=== PATIENT | female | born 1990 | race Caucasian/White ===

== ENCOUNTER → 2020-06-14 | Outpatient (CLI) | payer OTHER | LOC: LAB SHORT 13:21 → LAB EV 13:21 | DX: B34.9 Viral infection, unspecified (principal); Z20.828 Contact with and (suspected) exposure to other viral communicable diseases | CPT/HCPCS: U0003 ==

== ENCOUNTER 2023-02-13 18:07 | Emergency (ER) | payer OTHER ==
[~2023-02-13] VITALS: Ht 160 cm; Wt 88.9 kg
[2023-02-13 18:31] VITALS: BP 137/105
[2023-02-13] MEDS ORDERED: TRAZ50 PO (19:26)
[2023-02-13] MEDS ORDERED: Cyclobenzaprine5 MG (19:26)
[2023-02-13] MEDS ORDERED: Ventolin/Prove6.7 GM INH (19:26)
[2023-02-13] MEDS ORDERED: NEURONTIN300 MG PO (19:26)
== END 2023-02-13 20:41 | disposition home or self-care (01) ==
LOC: ER 18:07
DX: G43.909 Migraine, unspecified, not intractable, without status migrainosus (principal); Z91.041 Radiographic dye allergy status; Z88.8 Allergy status to other drugs, medicaments and biological substances; Z79.899 Other long term (current) drug therapy; E03.9 Hypothyroidism, unspecified
CPT/HCPCS: 96361; 96374; 96375; 99283-25; J0780; J1200; J1885; J7030

== ENCOUNTER 2023-10-02 15:09 | Emergency (ER) | payer OTHER ==
[~2023-10-02] VITALS: Ht 160 cm; Wt 79.8 kg
[~2023-10-02 15:09] MED LIST: Cyclobenzaprine5 MG; NEURONTIN300 MG PO; TRAZ50 PO; Ventolin/Prove6.7 GM INH
[2023-10-02 15:30] VITALS: BP 134/100
== END 2023-10-02 16:01 | disposition home or self-care (01) ==
LOC: ER 15:09
DX: S16.1XXA Strain of muscle, fascia and tendon at neck level, initial encounter (principal); M54.50 Low back pain, unspecified; G43.909 Migraine, unspecified, not intractable, without status migrainosus; E03.9 Hypothyroidism, unspecified; Z79.899 Other long term (current) drug therapy; Z88.4 Allergy status to anesthetic agent; Z91.041 Radiographic dye allergy status; V49.40XA Driver injured in collision with unspecified motor vehicles in traffic accident, initial encounter; Y92.410 Unspecified street and highway as the place of occurrence of the external cause
CPT/HCPCS: 99282

== ENCOUNTER 2024-07-12 00:21 | Observation (INO) | payer BC, OTHER ==
[2024-07-12] VITALS (14 sets, daily range): BP systolic 89–125; BP diastolic 51–89
[~2024-07-12] VITALS: Ht 160 cm; Wt 82.1 kg
[2024-07-12 01:13] LABS: BASOPHILS PERCENT AUTO 1 % (0-2); EOSINOPHILS ABSOLUTE AUTO 0.12 K/mm3 (0.00-0.68); EOSINOPHILS PERCENT AUTO 2 % (0-6); Hematocrit 36.4 % (33.0-51.0); Hemoglobin 11.9 g/dL (11.5-16.0); IMMATURE GRAN ABSOLUTE AUTO 0.02 K/mm3 (0.00-0.10); IMMATURE GRAN PERCENT AUTO 0 % (0-1); LYMPHOCYTES ABSOLUTE AUTO 3.13 K/mm3 (0.84-5.20); LYMPHOCYTES PERCENT AUTO 38 % (21-46); MONOCYTES ABSOLUTE AUTO 0.69 K/mm3 (0.16-1.47); MONOCYTES PERCENT AUTO 8 % (4-13); Mean Corpuscular HGB Conc 32.7 g/dL (31.5-36.5); Mean Corpuscular Volume 89 fL (80-100); Mean Platelet Volume 9.6 fL (9.1-12.4); NEUTROPHILS ABSOLUTE AUTO 4.18 K/mm3 (1.96-9.15); NEUTROPHILS PERCENT AUTO 51 % (41-73); Platelet Count 368 K/mm3 (150-400); RDW Coefficient Variation 12.8 % (11.7-14.2); RDW Standard Deviation 41.2 fL (35.1-46.3); Red Blood Cell Count 4.11 M/mm3 (3.80-5.20); White Blood Cell Count 8.24 K/mm3 (4.00-11.30)
[2024-07-12 01:33] LABS: Albumin, Blood 3.4 g/dL (3.4-5.0); Albumin/Globulin Ratio 0.9 (0.8-1.8); Bilirubin, Total 0.1 mg/dL (0.1-1.0); Creatinine, Blood 0.64 mg/dL (0.40-1.00); Globulin, Blood 3.6 g/dL (2.2-4.0)
[2024-07-12 01:51] LABS: Source, Urine Clean Catch
[2024-07-12 02:10] LABS: Bilirubin, Urine Neg (Neg); Blood, Urine 1+ (Neg); Glucose Qualitative, Urine Neg (Neg); Ketones, Urine Neg (Neg); Leukocyte Esterase, Urine Neg (Neg); Nitrite, Urine Neg (Neg); Protein, Urine Neg (Neg); Specific Gravity, Urine 1.015 (1.003-1.022); Urobilinogen, Urine NORM (Normal); pH, Urine 6.5 (5.0-8.0)
[2024-07-12 02:23] LABS: Appearance, Urine Clear (Clear); Color, Urine Yellow (P-Yellow)
[2024-07-12 02:24] LABS: Bacteria Rare /hpf; Red Blood Cells, Urine 0-2 /hpf (0-2); Squamous Epithelial Cells Few /hpf (Few); White Blood Cells, Urine Not Seen /hpf (0-5)
[2024-07-12] MEDS ORDERED: NS 1,000 ML IV SCH (02:30)
[2024-07-12] MEDS ORDERED: Ketorolac Tromethamine 30mg Vial IV ONE (02:30)
[2024-07-12] MEDS ORDERED: FentaNYL Citrate 50 MCG/ML 2 ML Injection IV PRN ×2 (02:30→05:10)
[2024-07-12] MEDS ORDERED: Ondansetron HCl 2 MG / ML 2ML Vial IV PRN (05:10)
[2024-07-12] MEDS ORDERED: FLU VACC TS2024-25(6MOS UP)/PF 45 MCG/0.5 ML SYRINGE IM ONE (05:10)
[2024-07-12] MEDS ORDERED: NS 1,000 ML IV ONE (05:30)
[2024-07-12] MEDS ORDERED: TraZODone HCl 50 MG Tab PO PRN (06:30)
[2024-07-12] MEDS ORDERED: Indocyanine Green 25 MG Vial IV STA (07:59)
[2024-07-12] MEDS ORDERED: CefOXitin Sodium 2,000 MG in NS 50 ML IV SCH (08:00)
[2024-07-12] MEDS ORDERED: Lactated Ringer's 1,000 ML IV SCH (08:30)
--- NOTE | 2024-07-12 08:34 | NUR ---
THIS RN SPOKE WITH CHAR IN PHARMACY TO VERIFY THE ADMINISTRATION OF INDOCYANINE GREEN IN LIGHT OF A KNOWN ALLERGY TO CONTRAST MEDIA.
[2024-07-12] MEDS ORDERED: Gabapentin 300 MG Cap PO SCH (09:00)
[2024-07-12] MEDS ORDERED: propofoL 20 ML IV ONE (09:50)
[2024-07-12] MEDS ORDERED: Sugammadex Sodium 200 MG/2ML SDV (100 MG/ML) ONE (09:50)
[2024-07-12] MEDS ORDERED: FentaNYL Citrate 50 MCG/ML 2 ML Injection ONE (09:50)
[2024-07-12] MEDS ORDERED: Midazolam HCl 1MG / ML 2ML Vial ONE (09:51)
--- NOTE | 2024-07-12 10:10 | NUR ---
History, Chart, Medications and Allergies reviewed before start of procedure.Pre-Op teaching done. Pt verbalizes understanding. Patient confirms NPO status and agrees with scheduled surgery.
[2024-07-12] MEDS ORDERED: Bupivacaine 0.5% HCl 5 MG/ML 30MLVIAL ONE (12:04)
[2024-07-12] MEDS ORDERED: Rocuronium Bromide 10 MG/ML 5ML Injection IV ONE (12:30)
[2024-07-12] MEDS ORDERED: Ondansetron HCl 2 MG / ML 2ML Vial ONE (12:30)
[2024-07-12] MEDS ORDERED: Dexamethasone Sod Phos 10 MG/ML 1ML VIAL ONE (12:30)
[2024-07-12] MEDS ORDERED: HYDROmorphone HCl/Pf 1MG SYR ONE ×2 (12:39→13:53)
[2024-07-12] MEDS ORDERED: Ibuprofen 400 MG Tab PO PRN (17:40)
--- NOTE | 2024-07-12 17:56 | NUR ---
Pt. is awake in bed and welcomes my visit. Pt. displayed evidence of being tired after her surgery. 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 Facilitated life reviews and updates. Pastoral care is given and prayer for the Pt. Pt. verbalized gratitude for the spiritual care visit.
--- NOTE | 2024-07-12 18:29 | NUR ---
SHIFT SUMMARY: POST OP DAY 0 LAP CHOLI. LAP SITES X4 C/D/I CLOSED WITH GLUE. PT IS TOLERATING PO INTAKE, WALKING IND IN ROOM, VOIDING WITHOUT DIFFICULTY. PAIN MANAGED WITH PO IBUPROFEN.
[2024-07-13 03:44] VITALS: BP 106/72
[2024-07-13 05:22] LABS: BASOPHILS ABSOLUTE AUTO 0.01 K/mm3 (0.00-0.23); BASOPHILS PERCENT AUTO 0 % (0-2); EOSINOPHILS PERCENT AUTO 0 % (0-6); Hematocrit 37.7 % (33.0-51.0); IMMATURE GRAN ABSOLUTE AUTO 0.03 K/mm3 (0.00-0.10); IMMATURE GRAN PERCENT AUTO 0 % (0-1); LYMPHOCYTES ABSOLUTE AUTO 1.04 K/mm3 (0.84-5.20); LYMPHOCYTES PERCENT AUTO 8 % (21-46); MONOCYTES ABSOLUTE AUTO 0.15 K/mm3 (0.16-1.47); MONOCYTES PERCENT AUTO 1 % (4-13); Mean Corpuscular HGB 28.6 pg (26.0-34.0); Mean Corpuscular HGB Conc 31.8 g/dL (31.5-36.5); Mean Corpuscular Volume 90 fL (80-100); NEUTROPHILS ABSOLUTE AUTO 11.38 K/mm3 (1.96-9.15); NEUTROPHILS PERCENT AUTO 90 % (41-73); Platelet Count 352 K/mm3 (150-400); RDW Standard Deviation 42.7 fL (35.1-46.3); White Blood Cell Count 12.61 K/mm3 (4.00-11.30)
[2024-07-13 05:51] LABS: Albumin, Blood 3.2 g/dL (3.4-5.0); Albumin/Globulin Ratio 0.9 (0.8-1.8); Bilirubin, Total 0.2 mg/dL (0.1-1.0); Creatinine, Blood 0.5 mg/dL (0.40-1.00); Globulin, Blood 3.6 g/dL (2.2-4.0); Potassium, Blood 4.4 mmol/L (3.5-5.5); Total Protein, Blood 6.8 g/dL (6.4-8.2)
--- NOTE | 2024-07-13 05:51 | NUR ---
SHIFT SUMMARY POD 1 LAP LUIS. NO ACUTE CHANGES OVERNIGHT. VSS. TOLERATING ORALS. IND IN ROOM. VOIDING. LAP SITES x4 C/D/I c WOUND GLUE, LUCIANO. IV FLUIDS/ABX INFUSING PER EMAR. PT REPORTS PAIN TOLERABLE, MEDICATED PER EMAR. FAMILY MEMEBER AT BEDSIDE OVERNIGHT. ANTICIPATED TO DISCHARGE LATER TODAY. CALL LIGHT IN REACH, BED IN LOWEST POSITION, WILL REPORT TO DAY RN.
[2024-07-13 07:28] VITALS: BP 115/64
[2024-07-13] MEDS ORDERED: ALBU90OI INH (11:13)
[2024-07-13] MEDS ORDERED: DIPH50 PO (11:14)
[2024-07-13] MEDS ORDERED: LORA10ER PO (11:14)
--- NOTE | 2024-07-13 13:27 | NUR ---
DISCHARGE: PACKET PRINTED AND PT EDUCATED. IV DC'D WNL, TIP INTACT. PT DENIED NEED FOR NARCOTIC SCRIPT. PT LEFT UNIT VIA WHEELCHAIR WITH THIS RN AT 1320
== END 2024-07-13 13:19 | disposition home or self-care (01) ==
LOC: ER 00:21 → ERHOLD 00:22 → SURS 00:22
PROVIDERS: Emergency Medicine; Surgery; ADMIT Internal Medicine
PROC: 0FT44ZZ Resection of Gallbladder, Percutaneous Endoscopic Approach (ICD-10-PCS; principal; 2024-07-12 10:30)
DX: K80.10 Calculus of gallbladder with chronic cholecystitis without obstruction (principal); E03.9 Hypothyroidism, unspecified; Z88.5 Allergy status to narcotic agent; Z88.6 Allergy status to analgesic agent; Z91.041 Radiographic dye allergy status; Z79.899 Other long term (current) drug therapy
CPT/HCPCS: 36415; 74176; 76705; 80053; 81001; 81025; 83690; 83880; 85025; 88304; 96365; 96366; 96374; 96375; 96376; 99285-25; A9270; G0378; J0694; J1100; J1170; J1171; J1885; J2250; J2405; J2704; J3010; J7030; J7120

== ENCOUNTER → 2024-10-28 | Outpatient (CLI) | payer BC, OTHER ==
[~2024-10-28] MED LIST changes: +ALBU90OI INH; +DIPH50 PO; +LORA10ER PO
== END ==
LOC: LAB SHORT 07:42 → LAB 07:42
DX: N93.9 Abnormal uterine and vaginal bleeding, unspecified (principal)
CPT/HCPCS: 88305

== ENCOUNTER → 2024-10-28 | Outpatient (CLI) | payer BC, OTHER ==
[2024-11-04 14:50] LABS: HPV HIGH RISK BY TMA Not Detected; HPV SOURCE Cervical
== END | disposition home or self-care (01) ==
LOC: LAB SHORT 18:05 → LAB 18:05
PROVIDERS: Obstetrics & Gynecology
DX: Z01.419 Encounter for gynecological examination (general) (routine) without abnormal findings (principal)
CPT/HCPCS: 87624; G0123